=== PATIENT | male | born 1980 | race Hispanic/Latino ===

== ENCOUNTER 2019-01-25 13:52 | Outpatient (CLI) | payer OTHER ==
--- NOTE | 2019-01-25 15:49 | MRI ---
BRAIN MRI WITH AND WITHOUT CONTRAST: HISTORY: Visual field defect. Spot on the left eye. COMPARISON: None. FINDINGS: Brain MRI: Gradient echo sequence: No hemorrhage. Calvarium: Appropriate T1 marrow signal intensity. Midline brain parenchyma: Unremarkable. Cerebrum:No parenchymal mass, mass effect or midline shift. Brain volume is age-appropriate. Cortical gudino-white matter differentiation is preserved. Minimal scattered T2 and FLAIR white matter hyperintensities which are nonspecific but may be due to migraine headache. Ventricles: No evidence of hydrocephalus. Sinuses and mastoid air cells: Adequate aeration. Diffusion: Central arterial flow is maintained. Absent restricted diffusion. Postcontrast images: No pathologic enhancement of the brain parenchyma. Orbit MRI: Symmetric signal intensity of the optic nerves and ocular rectus muscles. The optic chiasm and prechi asmatic optic nerves are symmetric in size and signal intensity Both globes are intact. No abnormal signal intensity in the retrobulbar space. Symmetric signal intensity of the lacrimal glands. IMPRESSION: 1. Unremarkable orbit MRI. Appropriate signal intensity of the optic nerves and ocular rectus muscles . 2. Scattered T2 and FLAIR hyperintensities which are nonspecific but may be sequelae from migraine yoni bryant. Transcribed Date/Time: 01/25/2019 3:57 PM
[2019-01-25] MEDS ORDERED: Magnevist 469MG/ML 20 ML VIAL ONE (15:53)
== END 2019-01-25 13:53 | disposition home or self-care (01) ==
LOC: BICMRI 13:52
PROVIDERS: ATTEND Family Medicine
DX: R51 Headache (principal); H53.40 Unspecified visual field defects; H53.462 Homonymous bilateral field defects, left side
CPT/HCPCS: 70553; A9579

== ENCOUNTER 2020-01-20 09:32 | Inpatient (IN) | payer OTHER ==
--- NOTE | 2020-01-20 10:24 | RAD ---
XR Chest 1 View Portable History: Covid pneumonia Comparison: None. Findings: Faint lingular and left lower lobe airspace opacities. Lung apices are clear. No pneumothor ax. Heart size is normal. No acute osseous abnormality. Impression: Faint lingular left lower lobe airspace opacities can be seen with early Covid pneumonia.
[2020-01-20] MEDS ORDERED: Morphine 4 MG/ML VIAL SLOW IVP PRN (10:29)
[2020-01-20] MEDS ORDERED: Ipratropium/Albuterol Sulfate 4 GM AER IH PRN (10:35)
[2020-01-20] MEDS ORDERED: Ibuprofen 800 MG TAB PO PRN (10:39)
[2020-01-20] MEDS: Sodium Chloride 0.45% 1,000 ML IV SCH (10:39)
[2020-01-20] MEDS: Aspirin 81 mg Enteric Coated Tablet PO SCH (10:45)
[2020-01-20] MEDS: methylPREDNISolone Sod Succ 40 MG VIAL IVP SCH (10:46)
[2020-01-20] MEDS ORDERED: cefTRIAXone\\ROCEPHIN 2 GM in Sodium Chloride 0.9% 100 ML IVPB SCH (11:00)
[2020-01-20] MEDS ORDERED: Aspirin 81 mg Enteric Coated Tablet PO SCH (11:00)
[2020-01-20] MEDS ORDERED: Enoxaparin Sodium 60 MG/0.6 ML SYRINGE SC SCH (11:00)
[2020-01-20] MEDS ORDERED: Ascorbic Acid 500 mg Chewable Tablet PO SCH (11:00)
[2020-01-20 11:12] LABS: #Lymphocytes 1.1 thou/uL (1.20-3.40); #Monocytes 0.7 thou/uL (0.11-0.59); #Neutrophils 11.2 thou/uL (1.40-6.50); %Basophils 0.2 % (0.0-1.0); %Eosinophils 0.3 % (0.0-10.0); %Lymphocytes 8.7 % (21.0-51.0); %Monocytes 5.1 % (0.0-10.0); %Neutrophils 85.7 % (42.0-75.0); Hemoglobin 15.2 g/dL (14.0-18.0); Mean Corpuscular HGB CONC 33.5 g/dL (32.0-36.0); Mean Corpuscular Hemoglobin 30.2 pg (27.0-31.0); Mean Corpuscular Volume 90.2 fL (78.0-98.0); Mean Platelet Volume 8.1 fL (7.4-10.4); Platelet Count 285 thou/uL (130-400); RBC Distribution Width 12.1 % (11.5-14.5); Red Blood Cell (RBC) Count 5.03 mill/uL (4.70-6.10)
[2020-01-20 11:35] LABS: ALT (SGPT) 81 U/L (8-55); AST (SGOT) 34 U/L (5-34); Albumin 3.6 g/dL (3.5-5.0); Alkaline Phosphatase 60 U/L (40-110); Anion Gap 17 mmol/L (10-20); BUN (Urea Nitrogen) 16 mg/dL (8.9-20.6); Bilirubin, Direct 0.4 mg/dL (0.1-0.3); Bilirubin, Total 0.8 mg/dL (0.2-1.2); CRP (Inflammatory) 19.89 mg/dL (= or < 0.5); Calc. Creatinine Clearance 0 mL/min (70-130); Carbon Dioxide 23 mmol/L (22-29); Chloride 105 mmol/L (98-107); Estimated GFR-MDRD Greater than 90; Glucose 113 mg/dL (70-105); Potassium 3.2 mmol/L (3.5-5.1); Protein, Total 7.2 g/dL (6.0-8.3); Sodium 142 mmol/L (136-145)
[2020-01-20] MEDS ORDERED: REMDESIVIR (EUA) 200 MG in Sodium Chloride 0.9% 250 ML 210 ML IV SCH (12:00)
[2020-01-20] MEDS: Ipratropium/Albuterol Sulfate 4 GM AER IH SCH ×2 (13:29→19:19)
[2020-01-20] MEDS: guaiFENesin/Codeine Phosphate 200 mg/20 mg 10 ml UD Cup PO PRN ×2 (14:00→19:49)
[2020-01-20] MEDS: Acetaminophen 500 MG TAB PO SCH ×2 (15:31→22:00)
[2020-01-20] MEDS ORDERED: POTASSIUM CHLORIDE IVPB SCH (17:00)
[2020-01-20] MEDS ORDERED: SODIUM CHLORIDE 0.9% IVPB SCH (17:00)
[2020-01-20] MEDS ORDERED: Potassium Chloride 10 MEQ TAB PO SCH (18:30)
--- NOTE | 2020-01-20 19:04 | HP ---
01/20/2020 HISTORY OF PRESENT ILLNESS: Mr. Lainez is a 39-year-old male. Thirteen days ago, he tested positive for COVID. Initially, he was just treated with vitamin C, Z-Tacos, and Eliquis. Prednisone was added a week ago. Two days ago, he developed hemoptysis, so his Eliquis was held. He woke up anxious and short of breath this morning, so we elected to admitting. Oximetry at home was 92% when he woke up this morning. PAST MEDICAL HISTORY: Otherwise, unremarkable. FAMILY HISTORY: Negative for lung disease in early age. PHYSICAL EXAMINATION: GENERAL: He is in no distress. He is afebrile. Heart rate is in the 70s, blood pressure 120/72, respiratory rates in the teens, and oximetry is 92 to 93 up to 94 today. HEAD AND NECK EXAM: Unremarkable. LUNGS: Clear. HEART: Regular rhythm. ABDOMEN: Soft. EXTREMITIES: Without edema. IMAGING: Chest x-ray shows possibly early lingular infiltrate. He was on Levaquin at home. Rocephin has been added today. IMPRESSION: COVID pneumonia. He will receive Remdesivir, convalescent plasma, steroids, Lovenox, oxygen, and nebulized treatments. Since he is two weeks into this, risk of transmitting infection is extremely low. He will not be isolated. He has been afebrile for over 24 hours now, so by current guidelines, it is reasonable to not isolating. Caregivers are still wearing 95 masks in the room. He should probably wear a mask when caregivers come into the room. This is a 70 min visit with greater than 50% of the time spent on unit with coordination of care. Job ID: [id number] [facility]
[2020-01-20] MEDS: Mometasone 100 MCG/Formoterol 5 MCG 120 PUFF INHALER INH SCH (19:19)
[2020-01-20] MEDS: Enoxaparin Sodium 60 MG/0.6 ML SYRINGE SC SCH (19:48)
[2020-01-20] MEDS: Ascorbic Acid 500 mg Chewable Tablet PO SCH (19:49)
[2020-01-21] MEDS: methylPREDNISolone Sod Succ 40 MG VIAL IVP SCH ×3 (00:03→20:16)
[2020-01-21] MEDS: Ipratropium/Albuterol Sulfate 4 GM AER IH SCH ×4 (00:17→18:06)
[2020-01-21] MEDS: Acetaminophen 500 MG TAB PO SCH ×4 (04:15→22:00)
[2020-01-21 04:20] LABS: Magnesium 2.1 mg/dL (1.6-2.6); Phosphorus 2.8 mg/dL (2.3-4.7)
[2020-01-21] MEDS: Sodium Chloride 0.45% 1,000 ML IV SCH (04:59)
[2020-01-21] MEDS: cefTRIAXone\\ROCEPHIN 2 GM in Sodium Chloride 0.9% 100 ML IVPB SCH (07:59)
[2020-01-21 08:00] LABS: ALT (SGPT) 69 U/L (8-55); AST (SGOT) 30 U/L (5-34); Albumin 3.3 g/dL (3.5-5.0); Alkaline Phosphatase 57 U/L (40-110); Bilirubin, Direct 0.3 mg/dL (0.1-0.3); Bilirubin, Total 0.7 mg/dL (0.2-1.2); Protein, Total 6.6 g/dL (6.0-8.3)
[2020-01-21] MEDS: Enoxaparin Sodium 60 MG/0.6 ML SYRINGE SC SCH ×2 (08:00→20:17)
[2020-01-21] MEDS: Aspirin 81 mg Enteric Coated Tablet PO SCH (08:00)
[2020-01-21] MEDS: Ascorbic Acid 500 mg Chewable Tablet PO SCH ×2 (08:00→20:16)
[2020-01-21] MEDS: Mometasone 100 MCG/Formoterol 5 MCG 120 PUFF INHALER INH SCH (10:54)
[2020-01-21] MEDS: REMDESIVIR (EUA) 100 MG in Sodium Chloride 0.9% 250 ML 230 ML IV SCH (11:53)
--- NOTE | 2020-01-21 15:46 | PRG ---
DATE OF SERVICE: 01/21/2020 SUBJECTIVE: Migel Sullivan remains afebrile. OBJECTIVE: VITAL SIGNS: Heart rate is in the 70s, blood pressure 133/75, respiratory rate is in the 20s, oximetry is 100%. GENERAL: He says he is feeling better than he felt yesterday. He has not had any fever. His cough has improved. LUNGS: Essentially unchanged. HEART: Essentially unchanged. ABDOMEN: Essentially unchanged. LABORATORY DATA: ALT has gone from 81 to 69. C-reactive protein has gone from 19 to 7.9. D-dimer is coming down from 1.5 to 1.09. ASSESSMENT AND PLAN: Overall, I believe he has improved. Check electrolytes and CBC tomorrow. Continue with remdesivir or any other medication. Based on his progress, we will decide on how long to give him remdesivir 5 versus 10 days. Overall, he appears to be stable. Job ID: [id number]
[2020-01-21] MEDS: guaiFENesin/Codeine Phosphate 200 mg/20 mg 10 ml UD Cup PO PRN (18:06)
[2020-01-22] MEDS: Acetaminophen 500 MG TAB PO SCH ×4 (04:00→20:22)
[2020-01-22 04:33] LABS: ALT (SGPT) 59 U/L (8-55); AST (SGOT) 23 U/L (5-34); Albumin 3.2 g/dL (3.5-5.0); Alkaline Phosphatase 54 U/L (40-110); Anion Gap 13 mmol/L (10-20); BUN (Urea Nitrogen) 17 mg/dL (8.9-20.6); Bilirubin, Direct 0.3 mg/dL (0.1-0.3); Bilirubin, Total 0.6 mg/dL (0.2-1.2); Calc. Creatinine Clearance 186 mL/min (70-130); Calcium 8.5 mg/dL (7.8-10.44); Carbon Dioxide 24 mmol/L (22-29); Chloride 106 mmol/L (98-107); Estimated GFR-MDRD Greater than 90; Glucose 165 mg/dL (70-105); Potassium 4.1 mmol/L (3.5-5.1); Protein, Total 6.3 g/dL (6.0-8.3); Sodium 139 mmol/L (136-145)
[2020-01-22 04:52] LABS: Band 16 % (5-11); Hemoglobin 14.1 g/dL (14.0-18.0); Lymphocytes 10 % (21-51); MDiff Complete? YES; Mean Corpuscular HGB CONC 32.8 g/dL (32.0-36.0); Mean Corpuscular Hemoglobin 30.2 pg (27.0-31.0); Mean Corpuscular Volume 92.2 fL (78.0-98.0); Mean Platelet Volume 8.3 fL (7.4-10.4); Metamyelocyte 1 % (0-0); Monocytes 4 % (0-10); Myelocyte 3 % (0-0); Neutrophil 66 % (42-75); Platelet Count 291 thou/uL (130-400); RBC Distribution Width 11.8 % (11.5-14.5); Red Blood Cell (RBC) Count 4.67 mill/uL (4.70-6.10); White Blood Cell (WBC) Count 13.5 thou/uL (4.8-10.8)
[2020-01-22] MEDS ORDERED: Arformoterol 15 MCG/2 ML NEB NEB SCH (06:30)
[2020-01-22] MEDS ORDERED: Budesonide 0.5 MG/2 ML NEB NEB SCH (06:30)
[2020-01-22] MEDS: cefTRIAXone\\ROCEPHIN 2 GM in Sodium Chloride 0.9% 100 ML IVPB SCH (07:42)
[2020-01-22] MEDS: Enoxaparin Sodium 60 MG/0.6 ML SYRINGE SC SCH ×2 (07:42→19:58)
[2020-01-22] MEDS: Ascorbic Acid 500 mg Chewable Tablet PO SCH ×2 (07:42→19:57)
[2020-01-22] MEDS: Aspirin 81 mg Enteric Coated Tablet PO SCH (07:42)
[2020-01-22] MEDS: Sodium Chloride 0.45% 1,000 ML IV SCH (08:01)
[2020-01-22] MEDS: methylPREDNISolone Sod Succ 40 MG VIAL IVP SCH ×2 (08:02→19:58)
[2020-01-22] MEDS: Mometasone 100 MCG/Formoterol 5 MCG 120 PUFF INHALER INH SCH ×2 (08:22→19:00)
[2020-01-22] MEDS ORDERED: Sodium Chloride 0.45% 1,000 ML IV SCH (08:44)
[2020-01-22] MEDS: Ipratropium/Albuterol Sulfate 4 GM AER IH SCH (09:35)
[2020-01-22] MEDS: REMDESIVIR (EUA) 100 MG in Sodium Chloride 0.9% 250 ML 230 ML IV SCH (11:28)
--- NOTE | 2020-01-22 17:11 | PRG ---
DATE OF SERVICE: 01/22/2020 SUBJECTIVE: Migel Sullivan slept on his stomach most last night. He has been most of the day up in the chair and says he is feeling better. He feels better up in a chair. OBJECTIVE: VITAL SIGNS: This afternoon, his blood pressure 128/76. I looked in on him several times. Heart rates in the 90s, respiratory rates in the high teens to low 20s, oximetry is 94. He was on a high-flow nasal cannula this morning, but this has been weaned down a little bit. LUNGS: Unchanged. HEART: Unchanged. ABDOMEN: Unchanged. ASSESSMENT AND PLAN: I suspect that he is starting to plateau with regard to his decline. Hopefully, he will feel better tomorrow. We have to decide on 5 days versus 10 days of remdesivir. I plan to talk to Dr. Hanson in the morning. Job ID: [id number]
[2020-01-22] MEDS: guaiFENesin/Codeine Phosphate 200 mg/20 mg 10 ml UD Cup PO PRN (17:53)
[2020-01-22] MEDS: Zinc Sulfate 220 MG CAP PO SCH (19:58)
[2020-01-23] MEDS: Acetaminophen 500 MG TAB PO SCH ×4 (04:00→20:52)
[2020-01-23 04:09] LABS: ALT (SGPT) 120 U/L (8-55); AST (SGOT) 68 U/L (5-34); Albumin 3.3 g/dL (3.5-5.0); Alkaline Phosphatase 63 U/L (40-110); Anion Gap 14 mmol/L (10-20); BUN (Urea Nitrogen) 17 mg/dL (8.9-20.6); Bilirubin, Direct 0.5 mg/dL (0.1-0.3); Calc. Creatinine Clearance 184 mL/min (70-130); Calcium 8.6 mg/dL (7.8-10.44); Carbon Dioxide 24 mmol/L (22-29); Chloride 104 mmol/L (98-107); Estimated GFR-MDRD Greater than 90; Glucose 164 mg/dL (70-105); Potassium 4.4 mmol/L (3.5-5.1); Protein, Total 6.4 g/dL (6.0-8.3); Sodium 138 mmol/L (136-145)
[2020-01-23 04:46] LABS: Band 18 % (5-11); Hemoglobin 14.6 g/dL (14.0-18.0); Lymphocytes 7 % (21-51); MDiff Complete? YES; Mean Corpuscular HGB CONC 33.5 g/dL (32.0-36.0); Mean Corpuscular Hemoglobin 31.1 pg (27.0-31.0); Mean Corpuscular Volume 92.8 fL (78.0-98.0); Mean Platelet Volume 8.1 fL (7.4-10.4); Metamyelocyte 4 % (0-0); Monocytes 5 % (0-10); Myelocyte 1 % (0-0); Neutrophil 64 % (42-75); Platelet Count 312 thou/uL (130-400); RBC Distribution Width 11.8 % (11.5-14.5); Reactive Lymphocytes 1 % (0-10); Red Blood Cell (RBC) Count 4.71 mill/uL (4.70-6.10); White Blood Cell (WBC) Count 15.8 thou/uL (4.8-10.8)
[2020-01-23] MEDS: cefTRIAXone\\ROCEPHIN 2 GM in Sodium Chloride 0.9% 100 ML IVPB SCH (07:53)
[2020-01-23] MEDS: Aspirin 81 mg Enteric Coated Tablet PO SCH (07:53)
[2020-01-23] MEDS: Ascorbic Acid 500 mg Chewable Tablet PO SCH ×2 (07:53→20:52)
[2020-01-23] MEDS: Enoxaparin Sodium 60 MG/0.6 ML SYRINGE SC SCH ×2 (07:55→20:53)
[2020-01-23] MEDS: methylPREDNISolone Sod Succ 40 MG VIAL IVP SCH ×2 (07:55→20:53)
[2020-01-23] MEDS: Mometasone 100 MCG/Formoterol 5 MCG 120 PUFF INHALER INH SCH ×2 (08:30→21:36)
[2020-01-23] MEDS: REMDESIVIR (EUA) 100 MG in Sodium Chloride 0.9% 250 ML 230 ML IV SCH (11:31)
[2020-01-23] MEDS ORDERED: Ipratropium Bromide 0.06% Nasal Inhaler 15ml EA NARE PRN (14:27)
--- NOTE | 2020-01-23 20:00 | PRG ---
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 OBJECTIVE: VITAL SIGNS: Heart rate is in 80s to 90s in sinus rhythm. He is afebrile. Blood pressure 148/82, oximetry is 97 this afternoon. LUNGS: Clear today. HEART: Regular rhythm. ABDOMEN: Soft. LABORATORY DATA: White count 15.8, showed 18% bands on his peripheral smear. Electrolytes are unremarkable. Glucose 164. I suppose this is related to steroids. Liver enzymes were mildly elevated. C-reactive protein was 3 yesterday and 8 today, not sure what to do with that. bacterial infection given his clinical improvement. We will continue his remdesivir and close observation. Job ID: [id number]
[2020-01-23] MEDS: Zinc Sulfate 220 MG CAP PO SCH (20:53)
[2020-01-23] MEDS: guaiFENesin/Codeine Phosphate 200 mg/20 mg 10 ml UD Cup PO PRN (20:53)
[2020-01-23] MEDS: Mag-Al Plus 1200 MG/1200 MG/120 MG/30 ML UDCUP PO PRN (23:33)
[2020-01-24 04:01] LABS: Band 19 % (5-11); Hemoglobin 14.6 g/dL (14.0-18.0); Lymphocytes 14 % (21-51); MDiff Complete? YES; Mean Corpuscular HGB CONC 33.3 g/dL (32.0-36.0); Mean Corpuscular Hemoglobin 30.2 pg (27.0-31.0); Mean Corpuscular Volume 90.6 fL (78.0-98.0); Mean Platelet Volume 8.2 fL (7.4-10.4); Metamyelocyte 7 % (0-0); Monocytes 6 % (0-10); Neutrophil 54 % (42-75); Platelet Count 371 thou/uL (130-400); Platelet Morphology Comment Appears Adequate; RBC Distribution Width 11.8 % (11.5-14.5); Red Blood Cell (RBC) Count 4.82 mill/uL (4.70-6.10); White Blood Cell (WBC) Count 18.9 thou/uL (4.8-10.8)
[2020-01-24 04:17] LABS: ALT (SGPT) 88 U/L (8-55); AST (SGOT) 23 U/L (5-34); Albumin 3.4 g/dL (3.5-5.0); Alkaline Phosphatase 61 U/L (40-110); Anion Gap 13 mmol/L (10-20); BUN (Urea Nitrogen) 20 mg/dL (8.9-20.6); Bilirubin, Direct 0.4 mg/dL (0.1-0.3); Bilirubin, Total 0.7 mg/dL (0.2-1.2); Calc. Creatinine Clearance 182 mL/min (70-130); Calcium 8.4 mg/dL (7.8-10.44); Carbon Dioxide 25 mmol/L (22-29); Chloride 102 mmol/L (98-107); Estimated GFR-MDRD Greater than 90; Glucose 163 mg/dL (70-105); Potassium 4.3 mmol/L (3.5-5.1); Protein, Total 6.7 g/dL (6.0-8.3); Sodium 136 mmol/L (136-145)
[2020-01-24] MEDS: Acetaminophen 500 MG TAB PO SCH ×5 (04:38→21:02)
[2020-01-24] MEDS: cefTRIAXone\\ROCEPHIN 2 GM in Sodium Chloride 0.9% 100 ML IVPB SCH (08:13)
[2020-01-24] MEDS: Enoxaparin Sodium 60 MG/0.6 ML SYRINGE SC SCH ×2 (08:15→20:59)
[2020-01-24] MEDS: Ascorbic Acid 500 mg Chewable Tablet PO SCH ×2 (08:16→20:58)
[2020-01-24] MEDS: Aspirin 81 mg Enteric Coated Tablet PO SCH (08:17)
[2020-01-24] MEDS: methylPREDNISolone Sod Succ 40 MG VIAL IVP SCH ×2 (08:20→20:59)
[2020-01-24] MEDS: Mometasone 100 MCG/Formoterol 5 MCG 120 PUFF INHALER INH SCH ×2 (08:35→18:50)
[2020-01-24] MEDS: REMDESIVIR (EUA) 100 MG in Sodium Chloride 0.9% 250 ML 230 ML IV SCH (12:01)
--- NOTE | 2020-01-24 14:16 | PRG ---
DATE OF SERVICE: 01/24/2020 Migel Sullivan did well overnight. This morning while he was sleeping on his stomach, his O2 saturation was 98% to 100% on 2 L. Once he got up as expected, he desaturated. He is still on 4 L cannula. His sats are running in the mid 90s at lunch time. Lungs, heart, and abdomen are otherwise unchanged. We are planning on to continue remdesivir for 10 days. He still has 19% bands on his peripheral smear. He remains on broad antimicrobial coverage. He has had no fever. Continue supportive care. Job ID: [id number]
[2020-01-24] MEDS ORDERED: Temazepam 15 MG CAP PO PRN (18:07)
[2020-01-24] MEDS ORDERED: Benzonatate 100 MG CAP PO SCH ×2 (18:15→21:00)
[2020-01-24] MEDS: Zinc Sulfate 220 MG CAP PO SCH (20:58)
[2020-01-24] MEDS: Benzonatate 100 MG CAP PO SCH (20:58)
[2020-01-24] MEDS: diphenhydrAMINE 50 MG CAP PO SCH (20:59)
[2020-01-25] MEDS: Acetaminophen 500 MG TAB PO SCH ×4 (03:50→23:04)
[2020-01-25 03:58] LABS: ALT (SGPT) 68 U/L (8-55); AST (SGOT) 22 U/L (5-34); Albumin 3.4 g/dL (3.5-5.0); Alkaline Phosphatase 65 U/L (40-110); Bilirubin, Direct 0.3 mg/dL (0.1-0.3); Bilirubin, Total 0.6 mg/dL (0.2-1.2); Protein, Total 6.8 g/dL (6.0-8.3)
[2020-01-25 03:59] LABS: Anion Gap 14 mmol/L (10-20); BUN (Urea Nitrogen) 19 mg/dL (8.9-20.6); Calc. Creatinine Clearance 181 mL/min (70-130); Calcium 8.6 mg/dL (7.8-10.44); Carbon Dioxide 25 mmol/L (22-29); Chloride 101 mmol/L (98-107); Estimated GFR-MDRD Greater than 90; Glucose 175 mg/dL (70-105); Potassium 4.3 mmol/L (3.5-5.1); Sodium 136 mmol/L (136-145)
[2020-01-25 04:40] LABS: Band 20 % (5-11); Hemoglobin 15.1 g/dL (14.0-18.0); Lymphocytes 11 % (21-51); MDiff Complete? YES; Mean Platelet Volume 8.1 fL (7.4-10.4); Monocytes 10 % (0-10); Neutrophil 59 % (42-75); Platelet Count 419 thou/uL (130-400); Red Blood Cell (RBC) Count 5.05 mill/uL (4.70-6.10); White Blood Cell (WBC) Count 18.5 thou/uL (4.8-10.8)
[2020-01-25] MEDS: cefTRIAXone\\ROCEPHIN 2 GM in Sodium Chloride 0.9% 100 ML IVPB SCH (08:14)
[2020-01-25] MEDS: Enoxaparin Sodium 60 MG/0.6 ML SYRINGE SC SCH (08:15)
[2020-01-25] MEDS: Ascorbic Acid 500 mg Chewable Tablet PO SCH ×2 (08:16→20:19)
[2020-01-25] MEDS: Benzonatate 100 MG CAP PO SCH ×3 (08:16→20:19)
[2020-01-25] MEDS: methylPREDNISolone Sod Succ 40 MG VIAL IVP SCH ×2 (08:18→20:20)
[2020-01-25] MEDS: REMDESIVIR (EUA) 100 MG in Sodium Chloride 0.9% 250 ML 230 ML IV SCH (11:56)
[2020-01-25] MEDS ORDERED: Enoxaparin Sodium 30 MG/0.3 ML SYRINGE SC SCH (12:30)
--- NOTE | 2020-01-25 13:26 | PRG ---
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 He is frustrated about the fact that he continues to require supplemental oxygen at 5 to 6 L to maintain saturation in the low 90s. Appetite is poor. He is breathless with activity. He denies chest pain, cough, or sputum. PHYSICAL EXAMINATION: VITAL SIGNS: Blood pressure 129/75. He is afebrile. Oxygen saturation was 89 to 92 when I was in the room at which time he was on nasal cannula at 6 L. He has no adenopathy. He has no Cherry. LUNGS: Show rhonchi, but no wheezes. He is not in particular respiratory distress, but does appear to be fatigued and ill. HEART: Regular rate and rhythm. ABDOMEN: Soft. There is no organomegaly. He has no edema. LABORATORY DATA: White count today 18,500, hemoglobin 15.1, hematocrit 45.9, platelet count of 419,000. He has 59 segs and 20 bands. Chemistry panel is normal. His ferritin level remains elevated at 1860. CRP down slightly to 5.96 from 7.8. There was no x-ray today. IMPRESSION: COVID pneumonia requiring supplemental oxygen ranging from 3 to 6 L/min. PLAN: We will continue current therapies without change. There is no indication for intubation and ventilatory support at this point. Job ID: [id number]
--- NOTE | 2020-01-25 17:35 | PRG ---
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 His nasal cannula O2 up to 3 to 4 L. He is saturating anywhere from 92 to 91 up to 93. He feels like his appetite is recovering. OBJECTIVE: HEENT: His ocular movements are conjugate. LUNGS: Clear breath sounds. Good air excursions. HEART: S1 and S2. Regular rate. ABDOMEN: Soft, not distended. EXTREMITIES: No edema. LABORATORY DATA: White cell count is 18.5, hemoglobin, with 20% bands. D-dimer is at 1.37. Ferritin is 1857. CRP is down to 4.96. He continues on remdesivir and corticosteroids. ASSESSMENT AND DISCUSSION: [id number] COVID pneumonia and he still not in a clinical pathway that we would feel confident and discontinue remdesivir. I think we need to extend to a full 10-day course of therapy for this patient. Continue monitoring inflammatory markers on a daily basis. Job ID: [id number] [facility]
[2020-01-25] MEDS: Mometasone 100 MCG/Formoterol 5 MCG 120 PUFF INHALER INH SCH ×2 (18:21→18:22)
--- NOTE | 2020-01-25 19:13 | RAD ---
EXAM: Single view of the chest HISTORY: Covid pneumonia COMPARISON: 01/20/2020 FINDINGS: Single view of the chest shows a normal sized cardiomediastinal silhouette. There are multi focal scattered airspace opacities in the lungs. These may have slightly worsened compared to the prior examination. No acute osseous abnormality. IMPRESSION: Multifocal infiltrates
[2020-01-25] MEDS: Zinc Sulfate 220 MG CAP PO SCH (20:19)
[2020-01-25] MEDS: Enoxaparin Sodium 80 MG/0.8 ML SYRINGE SC SCH (20:19)
[2020-01-25] MEDS: diphenhydrAMINE 50 MG CAP PO SCH (22:19)
[2020-01-26 04:06] LABS: Band 11 % (5-11); Hemoglobin 15.1 g/dL (14.0-18.0); Lymphocytes 9 % (21-51); MDiff Complete? YES; Mean Corpuscular HGB CONC 32.7 g/dL (32.0-36.0); Mean Corpuscular Hemoglobin 29.5 pg (27.0-31.0); Mean Corpuscular Volume 90.2 fL (78.0-98.0); Mean Platelet Volume 8.2 fL (7.4-10.4); Metamyelocyte 3 % (0-0); Monocytes 4 % (0-10); Myelocyte 1 % (0-0); Neutrophil 72 % (42-75); Platelet Count 449 thou/uL (130-400); Platelet Morphology Comment Appears Increased; RBC Distribution Width 11.9 % (11.5-14.5); Red Blood Cell (RBC) Count 5.12 mill/uL (4.70-6.10)
[2020-01-26 04:19] LABS: ALT (SGPT) 48 U/L (8-55); AST (SGOT) 14 U/L (5-34); Albumin 3.3 g/dL (3.5-5.0); Alkaline Phosphatase 60 U/L (40-110); Anion Gap 13 mmol/L (10-20); BUN (Urea Nitrogen) 20 mg/dL (8.9-20.6); Bilirubin, Direct 0.3 mg/dL (0.1-0.3); Bilirubin, Total 0.7 mg/dL (0.2-1.2); Calc. Creatinine Clearance 193 mL/min (70-130); Calcium 8.7 mg/dL (7.8-10.44); Carbon Dioxide 26 mmol/L (22-29); Chloride 101 mmol/L (98-107); Estimated GFR-MDRD Greater than 90; Glucose 168 mg/dL (70-105); Potassium 4.6 mmol/L (3.5-5.1); Protein, Total 6.7 g/dL (6.0-8.3); Sodium 135 mmol/L (136-145)
[2020-01-26] MEDS: Acetaminophen 500 MG TAB PO SCH ×4 (05:01→21:45)
[2020-01-26] MEDS: Mometasone 100 MCG/Formoterol 5 MCG 120 PUFF INHALER INH SCH ×2 (07:55→18:52)
[2020-01-26] MEDS: cefTRIAXone\\ROCEPHIN 2 GM in Sodium Chloride 0.9% 100 ML IVPB SCH (08:07)
[2020-01-26] MEDS: Aspirin 81 mg Enteric Coated Tablet PO SCH (08:08)
[2020-01-26] MEDS: methylPREDNISolone Sod Succ 40 MG VIAL IVP SCH ×2 (08:08→21:04)
[2020-01-26] MEDS: Benzonatate 100 MG CAP PO SCH ×3 (08:08→21:03)
[2020-01-26] MEDS: Enoxaparin Sodium 80 MG/0.8 ML SYRINGE SC SCH ×2 (08:08→21:04)
[2020-01-26] MEDS: Ascorbic Acid 500 mg Chewable Tablet PO SCH ×2 (10:51→21:03)
[2020-01-26] MEDS: REMDESIVIR (EUA) 100 MG in Sodium Chloride 0.9% 250 ML 230 ML IV SCH (11:52)
--- NOTE | 2020-01-26 12:28 | PRG ---
DATE OF SERVICE: 01/26/2020 SUBJECTIVE: Earlier today, he had gotten out of bed and became extremely fatigued and dyspneic. His oxygen saturation showed sharp drop into the 70s and at that time, he was changed from nasal cannula to a nonrebreather face mask. He was placed back in the bed. There were a lot of conversations, trying to reassure him and help him slow his breathing and over the period of about an hour, he was able to return to a nasal cannula at 5 L and a saturation of 94%. He was also briefly prone. I have talked to the Nursing Service about anxiolytic, but it seems as though, we are able to control him with biofeedback and as such, I would like to avoid pharmacologic agents. OBJECTIVE: VITAL SIGNS: Blood pressure 124/66, heart rate 81, respiratory rate 18, saturation in the mid and upper 90s currently on 6 L. GENERAL: He was initially somewhat anxious, but was able to self regulate in focus. LUNGS: Show bilateral rhonchi. There is no wheezing. HEART: Regular rate and rhythm. EXTREMITIES: He has no edema. He has no cords or tenderness. LABORATORY DATA: White count 21,000, hemoglobin is 15 with hematocrit of 46.2, and platelet count of 449,000. Differential continues to show 11% bands with 72% neutrophils. His chemistry panel includes sodium 135, potassium 4.6, chloride 101, CO2 is 26, BUN 20, and creatinine 0.8. IMPRESSION: COVID pneumonia. PLAN: We will continue current therapies. It seems as though a lot of his morning symptoms are mobilization of secretions and facilitation of space ventilation via cough. I think it is reasonable that he be on increased oxygen on a transient basis, but seems to be able to readjusting get back to standard nasal oxygen within an acceptable period of time. We will hold the reserve the use of continuous nonrebreather or even high-flow nasal cannula. Of last resort, would be BiPAP therapy. There is no evidence that he needs intubation. Critical care, 32 minutes. Job ID: [id number]
--- NOTE | 2020-01-26 17:14 | PRG ---
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 His O2 saturation now is anywhere from 97% to 100% with 4 L and appears comfortable. He is breathing 13 times a minute. No headaches. No chest pain. Coughing intermittently. No abdominal pain or diarrhea. No genitourinary symptoms. He is afebrile. He has been afebrile for a while now. OBJECTIVE: LUNGS: With surprisingly clear breath sounds. Good expansion. No wheezing. HEART: S1 and S2. Regular rate. ABDOMEN: Soft, not distended. EXTREMITIES: Moves extremities equally. LABORATORY DATA: Sodium 135, creatinine 0.76. Liver profile normal. CRP is down to 2.81, so it is steadily going down, which is a good sign. His ferritin is down from 2000 to 1500. This is the 7th day of remdesivir. Repeat chest x-ray showed multifocal airspace opacities. ASSESSMENT AND DISCUSSION: [id number] COVID-19 infection with bilateral pneumonia and severe desaturation, now responding very well to the prone position. He is in the 7th day of remdesivir, and our plan is to continue for a full 10-day course. He is on corticosteroids and full dose of anticoagulation with Lovenox and taking aspirin as well. Job ID: [id number]
[2020-01-26] MEDS: Zinc Sulfate 220 MG CAP PO SCH (21:03)
[2020-01-26] MEDS: diphenhydrAMINE 50 MG CAP PO SCH (21:04)
[2020-01-27] MEDS: Acetaminophen 500 MG TAB PO SCH ×4 (03:35→21:27)
[2020-01-27 04:14] LABS: Hemoglobin 15.3 g/dL (14.0-18.0); Mean Corpuscular HGB CONC 32.5 g/dL (32.0-36.0); Mean Corpuscular Hemoglobin 29.6 pg (27.0-31.0); Mean Corpuscular Volume 90.9 fL (78.0-98.0); Mean Platelet Volume 8.5 fL (7.4-10.4); Platelet Count 418 thou/uL (130-400); Red Blood Cell (RBC) Count 5.17 mill/uL (4.70-6.10); White Blood Cell (WBC) Count 19.3 thou/uL (4.8-10.8)
[2020-01-27 04:15] LABS: Band 15 % (5-11); Lymphocytes 7 % (21-51); MDiff Complete? YES; Monocytes 3 % (0-10); Neutrophil 75 % (42-75); Platelet Morphology Comment Appears Adequate; RBC Morphology Normal
[2020-01-27 04:20] LABS: ALT (SGPT) 40 U/L (8-55); AST (SGOT) 17 U/L (5-34); Albumin 3.4 g/dL (3.5-5.0); Alkaline Phosphatase 60 U/L (40-110); Anion Gap 14 mmol/L (10-20); BUN (Urea Nitrogen) 20 mg/dL (8.9-20.6); Bilirubin, Direct 0.4 mg/dL (0.1-0.3); Bilirubin, Total 0.8 mg/dL (0.2-1.2); Calc. Creatinine Clearance 179 mL/min (70-130); Calcium 8.5 mg/dL (7.8-10.44); Carbon Dioxide 24 mmol/L (22-29); Chloride 100 mmol/L (98-107); Estimated GFR-MDRD Greater than 90; Glucose 160 mg/dL (70-105); Potassium 4.7 mmol/L (3.5-5.1); Protein, Total 6.7 g/dL (6.0-8.3); Sodium 133 mmol/L (136-145)
[2020-01-27] MEDS: Mometasone 100 MCG/Formoterol 5 MCG 120 PUFF INHALER INH SCH ×2 (08:50→19:05)
--- NOTE | 2020-01-27 09:07 | PRG ---
DATE OF SERVICE: 01/27/2020 SUBJECTIVE: Very anxious, but overall seems to be doing reasonably well. Requiring about 3 L nasal cannula. OBJECTIVE: VITAL SIGNS: Temperature 98.3, pulse 66, blood pressure 123/75, O2 saturation running in the low 90s on 3 L nasal cannula. HEENT: Unremarkable. NECK: No JVD. LUNGS: Diffuse mild crackles particularly at the bases. CARDIAC: S1 and S2. Regular. ABDOMEN: Soft. EXTREMITIES: No edema. LABORATORY DATA: White blood cell count 19.3, hematocrit 47, and platelet count 418. Sodium 133, potassium 4.7, BUN 20, creatinine 0.8, and glucose 116. ASSESSMENT: COVID-19 pneumonia. PLAN: The patient is receiving remdesivir, which should be finished by tomorrow. Needs to get around the room or if he can. Continue therapy with steroids and anticoagulation. Job ID: [id number]
[2020-01-27] MEDS: Benzonatate 100 MG CAP PO SCH ×3 (09:13→20:18)
[2020-01-27] MEDS: Ascorbic Acid 500 mg Chewable Tablet PO SCH ×2 (09:13→20:19)
[2020-01-27] MEDS: Enoxaparin Sodium 80 MG/0.8 ML SYRINGE SC SCH ×2 (09:13→20:17)
[2020-01-27] MEDS: Aspirin 81 mg Enteric Coated Tablet PO SCH (09:13)
[2020-01-27] MEDS: methylPREDNISolone Sod Succ 40 MG VIAL IVP SCH ×2 (09:14→20:18)
[2020-01-27] MEDS: cefTRIAXone\\ROCEPHIN 2 GM in Sodium Chloride 0.9% 100 ML IVPB SCH (09:14)
[2020-01-27] MEDS: Cholecalciferol (Vitamin D3) 400 UNITS TAB PO SCH (09:37)
[2020-01-27] MEDS: REMDESIVIR (EUA) 100 MG in Sodium Chloride 0.9% 250 ML 230 ML IV SCH (12:18)
--- NOTE | 2020-01-27 14:15 | PRG ---
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 He is still proning himself from time to time. Cough still there, but it is more comfortable. He is afebrile, is saturating 99% to 100% on 3 L LUNGS: With really clear breath sounds symmetrically distributed. HEART: S1-S2 regular rate. ABDOMEN: Soft, not distended. EXTREMITIES: Moves all extremities equally. LABORATORY DATA: White cell count 19.3, hemoglobin 15, platelets 418, 15% bands, D-dimer 0.94. The CRP is down to 1.49. Ferritin is down to 1200. ASSESSMENT/DISCUSSION: Severe COVID infection with pneumonia. Finally it looks like we are making progress in all areas with improvement in markers, improvement in his saturations and decrease in the supplementation requirement. I think he has 1 or 2 more days of remdesivir to go. Job ID: [id number] [facility]
[2020-01-27] MEDS: Zinc Sulfate 220 MG CAP PO SCH (20:18)
[2020-01-27] MEDS: diphenhydrAMINE 50 MG CAP PO SCH (20:19)
[2020-01-28 03:44] LABS: Band 20 % (5-11); Hemoglobin 15.1 g/dL (14.0-18.0); Lymphocytes 8 % (21-51); MDiff Complete? YES; Mean Corpuscular HGB CONC 32.8 g/dL (32.0-36.0); Mean Corpuscular Hemoglobin 29.8 pg (27.0-31.0); Mean Corpuscular Volume 90.9 fL (78.0-98.0); Mean Platelet Volume 8.1 fL (7.4-10.4); Metamyelocyte 1 % (0-0); Monocytes 3 % (0-10); Neutrophil 68 % (42-75); Platelet Count 418 thou/uL (130-400); Platelet Morphology Comment Appears Increased; Red Blood Cell (RBC) Count 5.07 mill/uL (4.70-6.10)
[2020-01-28 04:29] VITALS: BMI 30.6
[2020-01-28] MEDS: Acetaminophen 500 MG TAB PO SCH ×4 (05:13→20:39)
[2020-01-28 06:54] LABS: ALT (SGPT) 42 U/L (8-55); AST (SGOT) 17 U/L (5-34); Albumin 3.6 g/dL (3.5-5.0); Alkaline Phosphatase 62 U/L (40-110); Anion Gap 14 mmol/L (10-20); BUN (Urea Nitrogen) 20 mg/dL (8.9-20.6); Bilirubin, Direct 0.4 mg/dL (0.1-0.3); Bilirubin, Total 0.8 mg/dL (0.2-1.2); Calc. Creatinine Clearance 181 mL/min (70-130); Calcium 8.8 mg/dL (7.8-10.44); Carbon Dioxide 25 mmol/L (22-29); Chloride 102 mmol/L (98-107); Estimated GFR-MDRD Greater than 90; Glucose 146 mg/dL (70-105); Potassium 4.3 mmol/L (3.5-5.1); Protein, Total 6.8 g/dL (6.0-8.3); Sodium 137 mmol/L (136-145)
[2020-01-28] MEDS: Enoxaparin Sodium 80 MG/0.8 ML SYRINGE SC SCH ×2 (08:42→19:43)
[2020-01-28] MEDS: cefTRIAXone\\ROCEPHIN 2 GM in Sodium Chloride 0.9% 100 ML IVPB SCH (08:42)
[2020-01-28] MEDS: Cholecalciferol (Vitamin D3) 400 UNITS TAB PO SCH (08:42)
[2020-01-28] MEDS: Ascorbic Acid 500 mg Chewable Tablet PO SCH ×2 (08:44→19:42)
[2020-01-28] MEDS: methylPREDNISolone Sod Succ 40 MG VIAL IVP SCH ×2 (08:45→19:44)
[2020-01-28] MEDS: Aspirin 81 mg Enteric Coated Tablet PO SCH (08:45)
[2020-01-28] MEDS: Benzonatate 100 MG CAP PO SCH ×3 (08:45→19:42)
[2020-01-28] MEDS: Mometasone 100 MCG/Formoterol 5 MCG 120 PUFF INHALER INH SCH ×2 (09:28→19:22)
[2020-01-28] MEDS: REMDESIVIR (EUA) 100 MG in Sodium Chloride 0.9% 250 ML 230 ML IV SCH (12:24)
--- NOTE | 2020-01-28 17:15 | PRG ---
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 I think he is feeling better and he says his oximetry is 99% to 100% on 3 to 4 L today. His exam was unchanged. LABORATORY DATA: White count is 20, platelets 418 . Electrolytes are normal. C-reactive protein is down to 0.6. IMPRESSION: COVID pneumonia, slowly improving. Once he has completed his remdesivir, we will send him home. Hopefully, he will not require oxygen at that point. Job ID: [id number]
[2020-01-28] MEDS: Zinc Sulfate 220 MG CAP PO SCH (19:43)
[2020-01-28] MEDS: diphenhydrAMINE 50 MG CAP PO SCH (20:38)
[2020-01-28] MEDS: Mag-Al Plus 1200 MG/1200 MG/120 MG/30 ML UDCUP PO PRN (21:12)
[2020-01-29] MEDS: Acetaminophen 500 MG TAB PO SCH ×2 (03:32→10:14)
[2020-01-29 04:16] LABS: Band 7 % (5-11); Hemoglobin 15.4 g/dL (14.0-18.0); Lymphocytes 3 % (21-51); MDiff Complete? YES; Mean Corpuscular HGB CONC 33.4 g/dL (32.0-36.0); Mean Corpuscular Hemoglobin 30.6 pg (27.0-31.0); Mean Corpuscular Volume 91.4 fL (78.0-98.0); Mean Platelet Volume 8.3 fL (7.4-10.4); Monocytes 11 % (0-10); Neutrophil 79 % (42-75); Platelet Count 377 thou/uL (130-400); Platelet Morphology Comment Appears Adequate; RBC Distribution Width 12.1 % (11.5-14.5); RBC Morphology Normal; Red Blood Cell (RBC) Count 5.04 mill/uL (4.70-6.10); White Blood Cell (WBC) Count 22.4 thou/uL (4.8-10.8)
[2020-01-29 04:20] LABS: ALT (SGPT) 44 U/L (8-55); AST (SGOT) 18 U/L (5-34); Albumin 3.4 g/dL (3.5-5.0); Alkaline Phosphatase 56 U/L (40-110); Anion Gap 14 mmol/L (10-20); BUN (Urea Nitrogen) 21 mg/dL (8.9-20.6); Bilirubin, Direct 0.4 mg/dL (0.1-0.3); Calc. Creatinine Clearance 186 mL/min (70-130); Calcium 8.5 mg/dL (7.8-10.44); Carbon Dioxide 23 mmol/L (22-29); Chloride 101 mmol/L (98-107); Estimated GFR-MDRD Greater than 90; Glucose 156 mg/dL (70-105); Potassium 4.4 mmol/L (3.5-5.1); Protein, Total 6.3 g/dL (6.0-8.3); Sodium 134 mmol/L (136-145)
[2020-01-29] MEDS: Ascorbic Acid 500 mg Chewable Tablet PO SCH (07:46)
[2020-01-29] MEDS: Benzonatate 100 MG CAP PO SCH (07:46)
[2020-01-29] MEDS: Aspirin 81 mg Enteric Coated Tablet PO SCH (07:47)
[2020-01-29] MEDS: cefTRIAXone\\ROCEPHIN 2 GM in Sodium Chloride 0.9% 100 ML IVPB SCH (07:47)
[2020-01-29] MEDS: Enoxaparin Sodium 80 MG/0.8 ML SYRINGE SC SCH (07:47)
[2020-01-29] MEDS: methylPREDNISolone Sod Succ 40 MG VIAL IVP SCH (07:48)
[2020-01-29] MEDS ORDERED: Fluconazole In NaCl,Iso-Osm 100 MG in Premix Bag 1 BAG IVPB SCH (09:00)
[2020-01-29] MEDS: Apixaban 5 MG TAB PO SCH ×2 (10:00→10:30)
[2020-01-29] MEDS ORDERED: Fluconazole In NaCl,Iso-Osm 100 MG, Admixture Fee 1 EACH in Premix Bag 1 BAG IVPB SCH (10:00)
[2020-01-29] MEDS: Cholecalciferol (Vitamin D3) 400 UNITS TAB PO SCH (10:32)
[2020-01-29] MEDS: REMDESIVIR (EUA) 100 MG in Sodium Chloride 0.9% 250 ML 230 ML IV SCH (12:21)
[2020-01-29] MEDS: Aluminum & Magnesium Hydroxide 60 ML, diphenhydrAMINE 150 MG, Lidocaine 2% Viscous Solu... SSW SCH ×2 (12:31)
[2020-01-29 13:31] VITALS: TEMP 97.8
--- NOTE | 2020-01-30 05:53 | DIS ---
DATE OF ADMISSION: 01/20/2020 DATE OF DISCHARGE: 01/29/2020 Migel is doing well. He was ready to go home. We set him up with oxygen at 2 L a minute, although it is likely that he will be off this within a couple of days. He spent a whole day on room air yesterday with sats in the mid 90s. He will go home on prednisone 30 mg for 5 days, 20 mg for 5 days, and 10 mg for 5 days. We are going to continue with Eliquis 5 mg twice a day for a month and may go to 2.5 mg twice a day for a month. He would take his baby aspirin every day and continue his vitamin C. I recommended a followup chest x-ray in 6-8 weeks. Job ID: [id number]
[2020-01-30] MEDS ORDERED: methylPREDNISolone Sod Succ 40 MG VIAL IVP SCH (09:00)
== END 2020-01-29 15:15 | disposition home or self-care (01) | DRG 177 ==
LOC: EEVIPCON → CCU 09:47
PROVIDERS: ADMIT Internal Medicine Critical Care Medicine; ATTEND Internal Medicine Critical Care Medicine
PROC: XW13325 Transfusion of Convalescent Plasma (Nonautologous) into Peripheral Vein, Percutaneous Approach, New Technology Group 5 (ICD-10-PCS; principal; 2020-01-20)
PROC: XW033E5 Introduction of Remdesivir Anti-infective into Peripheral Vein, Percutaneous Approach, New Technology Group 5 (ICD-10-PCS; 2020-01-20)
DX: U07.1 COVID-19 (principal); J12.89 Other viral pneumonia
CPT/HCPCS: 36415; 36430; 71045; 80048; 80076; 82728; 83735; 84100; 85007; 85025; 85027; 85379; 86140; 86850; 86900; 86901; J0696; J1450; J1650; J2270; J2920; J3480; J3490; J7050; P9017; Q0163